=== PATIENT | male | born 1960 | race Two or more races ===

== ENCOUNTER 2024-07-24 15:53 | Emergency (ER) | payer OTHER ==
[~2024-07-24] VITALS: Ht 180.3 cm; Wt 115.7 kg
[2024-07-24 16:17] VITALS: BP 145/81; PULSE 92
--- NOTE | 2024-07-24 16:21 | ED.PDOC ---
GI ASSESSMENT HPI Comments 64y extremely morbidly obese M who presents to the ED for chief complaint of abdominal pain that has been developing over the past few days. Pt states he has a inguinal hernia on the R and states he has been having intermittent RLQ pain which he states was exacerbated at 12 PM today and he came to the ED for further evaluation. Pt states the pain is 5/10, with no associated exacerbating or relieving factors. Pt otherwise denies nausea,vomiting, diarrhea, fever, cough, chills, chest pain or shortness of breath. Pt otherwise denies any strain or exacerbated movements to elicit the pain. Pt states he has had hernia for same time now but states he has not yet gotten surgery for it. Pt otherwise denies any other symptoms at this time. Chief Complaint: Abdominal Pain Time Seen by MD: 16:19 Reviewed Notes: Nurses Notes Allergies: Coded Allergies: NO KNOWN ALLERGIES (Unverified , 07/24/24) Information Source: Patient Mode of Arrival: Ambulatory Brought in by: self Timing: Days Duration: Since onset Prehospital treatment: None Quality: Cramping, Sharp Vomitus: None Severity: Moderate Recent: None Recent Hx of: Other (Right-sided inguinal hernia) Pain Location: RLQ Associated sign and symptoms: Abdominal Pain Past Medical History PAST MEDICAL HISTORY: Denies Past Medical History (Other): Right-sided inguinal hernia Surgical History: Denies all surgeries Family History Family History: Unknown Social History Smoker: Non-Smoker Alcohol: Denies ETOH Use Drugs: Denies Drug Use Lives In: Home Constitutional: denies: chills, diaphoresis, fatigue, fever, malaise, sweats, weakness, others EENTM: denies: blurred vision, double vision, ear bleeding, ear discharge, ear drainage, ear pain, ear ringing, eye pain, eye redness, hearing loss, mouth pain, mouth swelling, nasal discharge, nose bleeding, nose congestion, nose pain, photophobia, tearing, throat pain, throat swelling, voice changes, others Respiratory: denies: cough, hemoptysis, orthopnea, SOB at rest, shortness of breath, SOB with excertion, stridor, wheezing, others Cardiovascular: denies: chest pain, dizzy spells, diaphoresis, Dyspnea on exertion, edema, irregular heart beat, left arm pain, lightheadedness, palpitations, PND, syncope, others Gastrointestinal: reports: abdominal pain; denies: abdomen distended, blood streaked bowels, constipated, diarrhea, dysphagia, difficulty swallowing, hematemesis, melena, nausea, poor appetite, poor fluid intake, rectal bleeding, rectal pain, vomiting, others Genitourinary: denies: burning, dysuria, flank pain, frequency, hematuria, incontinence, penile discharge, penile sore, pain, testicle pain, testicle swelling, urgency, others Neurological: denies: dizziness, fainting, headache, left sided numbness, left sided weakness, numbness, paresthesia, pre-existing deficit, right sided numbness, right sided weakness, seizure, speech problems, tingling, tremors, weakness, others Musculoskeletal: denies: back pain, gout, joint pain, joint swelling, muscle pain, muscle stiffness, neck pain, others Integumetry: denies: bruises, change in color, change in hair/nails, dryness, laceration, lesions, lumps, rash, wounds, others Allergic/Immunocompromised: denies: Difficulty Healing, Frequent Infections, Hives, Itching, others Hematologic/Lymphatic: denies: anemia, blood clots, easy bleeding, easy bruising, swollen glands, others Endocrine: denies: excessive hunger, excessive sweating, excessive thirst, excessive urination, flushing, intolerance to cold, intolerance to heat, unexplained weight gain, unexplained weight loss, others Psychiatric: denies: anxiety, bipolar disorder, depression, hopeless, panic disorder, schizophrenia, sleepless, suicidal, others All Other Systems: Reviewed and Negative Physical Exam General Appearance: Moderate Distress (Moderate distress due to right-sided abdominal/inguinal hernia tenderness.), Obese HEENT: Normal ENT Inspection, Pharynx Normal, TMs Normal Neck: Full Range of Motion, Non-Tender, Normal, Normal Inspection Respiratory: Chest Non-Tender, Lungs Clear, No Accessory Muscle Use, No Respiratory Distress, Normal Breath Sounds Cardiovascular: No Edema, No JVD, No Murmur, No Gallop, Normal Peripheral Pulses, Regular Rate/Rhythm Breast Exam: Deferred Gastrointestinal: Other (Right lower quadrant tenderness to palpation extending towards the inguinal region. Difficult to assess due to body habitus. There was able to appreciate a non reducible mass. No edema or ecchymosis.) Genitalia: Deferred Pelvic: Deferred Rectal: Deferred Extremities: No calf tenderness, Normal capillary refill, Normal inspection, Normal range of motion, Non-tender, No pedal edema Neurologic: Alert, No Motor Deficits, Normal Affect, Normal Mood, No Sensory Deficits Cerebellar Function: Normal Reflexes: Normal Skin: Dry, Normal Color, Warm Lymphatic: No Adenopathy Was a procedure done? Was a procedure done?: No GI differential Dx Differential Diagnosis: Hernia, Trauma intraabdominal, Other (Incarcerated hernia strangulated hernia, sepsis, electrolyte abnormality, UTI) X-Ray, Labs, Meds, VS Vital Signs Date Time Temp Pulse Resp B/P (MAP) Pulse Ox O2 Delivery O2 Flow Rate FiO2 07/24/24 16:27 16 98 Room Air* 0 21 07/24/24 16:17 98.3 92 16 145/81 (102) 98 Lab Test 07/24/24 16:21 07/24/24 16:14 Range/Units White Blood Count 9.3 4.4-10.8 10^3/uL Red Blood Count 6.19 H 4.5-5.90 10^6/uL Hemoglobin 16.7 13.5-17.5 g/dL Hematocrit 50.2 41.0-53.0 % Mean Corpuscular Volume 81.1 80.0-100.0 fL Mean Corpuscular Hemoglobin 26.9 L 28.0-32.0 pg Mean Corpuscular Hemoglobin Concent 33.2 32.0-36.0 g/dL Red Cell Distribution Width 15.8 H 11.8-14.3 % Platelet Count 260 140-450 10^3/uL Mean Platelet Volume 7.5 6.9-10.8 fL Neutrophils (%) (Auto) 84.3 H 37.0-80.0 % Lymphocytes (%) (Auto) 10.8 10.0-50.0 % Monocytes (%) (Auto) 3.9 0.0-12.0 % Eosinophils (%) (Auto) 0.4 0.0-7.0 % Basophils (%) (Auto) 0.6 0.0-2.0 % Neutrophils # (Auto) 7.8 1.6-8.6 10 ^3/uL Lymphocytes # (Auto) 1.0 0.4-5.4 10 ^3/uL Monocytes # (Auto) 0.4 0-1.3 10 ^3/uL Eosinophils # (Auto) 0 0-0.8 10 ^3/uL Basophils # (Auto) 0.1 0-0.2 10 ^3/uL Nucleated Red Blood Cells 0.0 % Sodium Level 142 136-145 mmol/L Potassium Level 5.4 H 3.5-5.1 mmol/L Chloride Level 107 98-107 mmol/L Carbon Dioxide Level 28 20-31 mmol/L Anion Gap 7 5-15 Blood Urea Nitrogen 18 9-23 mg/dL Creatinine 1.03 0.700-1.30 mg/dL Glomerular Filtration Rate Calc 80 >90 mL/min BUN/Creatinine Ratio 17.5 10.0-20.0 Serum Glucose 156 H 74-106 mg/dL Calcium Level 10.8 H 8.7-10.4 mg/dL Total Bilirubin 0.3 0.2-1.0 mg/dL Aspartate Amino Transferase (AST) 22 13-40 U/L Alanine Aminotransferase (ALT) 46 H 7-40 U/L Alkaline Phosphatase 67 46-116 U/L Total Protein 7.8 5.7-8.2 g/dL Albumin 4.7 3.2-4.8 g/dL Urine Color Yellow Yellow Urine Clarity Clear Clear Urine pH 5.5 5.0-9.0 Urine Specific [place] 1.034 1.001-1.035 Urine Protein Trace H Negative Urine Ketones Negative Negative Urine Blood Negative Negative /uL Urine Nitrite Negative Negative Urine Bilirubin Negative Negative Urine Urobilinogen Normal Negative mg/dL Urine Leukocyte Esterase Negative Negative /uL Urine RBC 151 0 - 3 /hpf Urine WBC 297 0 - 3 /hpf Urine Squamous Epithelial Cells Few <5 /hpf Urine Bacteria Few H None Seen /hpf Urine Mucus Few None Seen Urine Glucose Normal Normal mg/dL [place] [id number] Ph: [phone] DIAGNOSTIC IMAGING Diagnostic Imaging Report : [id number] Signed PATIENT: YARIEL SHETH ACCT: [id number] UNIT: [id number] : 1960 LOC: ER ROOM / BED: / AGE / SEX: 64 / M ADM STATUS: REG ER SERVICE [id number] ORDERING PHYSICIAN: DEYSI GARCÍA PAC PROCEDURE(s): ABPLIV - CT AB PEL WITH IV CON ONLY REASON: Right lower quadrant abdominal pain ORDER NUMBER(s): [id number], ACCESSION NUMBER(s): [id number] Exam: CT CT AB PEL WITH IV CON ONLY History: Right lower quadrant abdominal pain Comparison Study: None available at time of dictation. Contrast: Type of contrast: Patient's IV infiltrated during scanning Contrast injected: Contrast wasted: 0 TECHNIQUE: A digital senior writer image was obtained. During the uneventful, intravenous administration of contrast material, multislice data acquisition was obtained through the abdomen and pelvis. The data set was subsequently reconstructed into axial images. Images were reviewed on a work station using a combination of axial and multiplanar using a variety of window levels and settings. Radiation Dose Information: CT Dose: CTDI volume is 22.97 mGy. Dose-length product is 1471.88 mGy*cm FINDINGS: Lung Bases: No acute or significant lung base finding. Normal heart size. No pleural or pericardial effusion. Liver: The liver is normal in size. No focal lesions. Normal hepatic vascular enhancement. Gallbladder and Biliary Tree: Unremarkable Spleen: Unremarkable Pancreas: The pancreas is normal in appearance without focal lesions or abnormal enhancement. Adrenal Glands: Unremarkable Kidneys: Kidneys demonstrate normal symmetric enhancement without focal lesions, calculi or hydronephrosis. Bladder: Unremarkable Bowel: The stomach is grossly normal in appearance. Small bowel and colon are normal in caliber and distribution. The appendix is not visualized; however, no secondary findings of acute appendicitis identified. Ascites: Absent Lymphadenopathy: No mesenteric, retroperitoneal or periportal lymphadenopathy. Abdominal Wall and Mesentery: 5.4 x 5.7 x 4.3 cm right inguinal hernia containing mesenteric fat and bowel which is fluid-filled. Vasculature: The visualized abdominal aorta is normal in size and caliber. Abdominal and pelvic vessels demonstrate normal enhancement. Pelvic Organs: Unremarkable Musculoskeletal: No aggressive focal bony lesions, acute fractures or dislocation. Soft tissues: Unremarkable. IMPRESSION: 1. 5.7 x 5.4 x 4.3 cm right inguinal hernia containing fluid-filled bowel and mesenteric fat. Can not exclude incarceration. 2. No findings bowel obstruction 3. No calcified gallstones in the gallbladder. 4. No nephrolithiasis or hydronephrosis. All CT scans at this medical facility are performed using dose modulation techniques as appropriate to a performed exam including the following: Automated exposure control was utilized; adjustment of the MA and/or KV according to patient size; and use of iterative reconstruction technique. ATED BY: DEMARIO MUÑOZ Jr., DO DICTATED DATE/TIME: 07/24/241811 SIGNED BY: DEMARIO MUÑOZ Jr., SIGNED DATE/TIME: 07/24/241811 CC: X-Ray, Labs, Meds, VS Comment All studies performed the ED were reviewed by me personally. Serum laboratories were unremarkable for any definitive systemic process, but urine returned a large urinary tract infection. Imaging studies showed a bowel and mesenteric filled right-sided inguinal hernia that could not be ruled out for incarceration and therefore, patient will be admitted for IV antibiotics to address his urinary tract infection as well as surgical evaluation to assess his hernia concerns. Time of 1ST Reevaluation: 19:50 Reevaluation 1ST: Improved Consultation: PCP Patient Education/Counseling: Diagnosis, Treatment Family Education/Counseling: Diagnosis, Treatment, No Family Present Additional Information - I reviewed the following notes from patient's past medical encounters: - The following tests were ordered, and results were reviewed by me: (Labs, X- Ray, EKG): CBC, CMP, CT abdomen and pelvis w/o contrast, UA, - Additional information was gathered from interviewing the following independent Historian: (Family, Other Providers, EMT): none - I reviewed and agreed with the following test results read by other provider: (X-ray, CT, US): radiologist - I discussed treatments and results with medical personnel and: (consultants, family): none Departure 1 Departure Time of Disposition: 19:51 Impression: Primary Impression: Incarcerated hernia Additional Impression: UTI (urinary tract infection) Disposition: ADMITTED INPATIENT Condition: Stable Discharged With: Self Critical Care Note Critical Care Time?: No Stability Stability form required: No Heart Score Heart Score: Heart Score Response (Comments) Value History N/A 0 EKG N/A 0 Age N/A 0 Risk Factors N/A 0 Troponin N/A 0 Total 0 I personally scribed for DEYSI GARCÍA PAC ([email or web address]) on 07/24/24 at 16:21. Electronically submitted by Mayda Wilson ([email or web address]). I personally scribed for DEYSI GARCÍA PAC ([employer]) on 07/24/24 at 18:20. Electronically submitted by Mayda Wilson ([email or web address]). DEYSI GARCÍA [facility] Jul 24, 2024 16:21
[2024-07-24 16:27] VITALS: RESP 16; O2SAT 98
[2024-07-24 16:40] LABS: Basophils # (auto) 0.1 10 ^3/uL (0-0.2); Basophils % (auto) 0.6 % (0.0-2.0); Eosinophils # (auto) 0 10 ^3/uL (0-0.8); Monocytes # (auto) 0.4 10 ^3/uL (0-1.3); Monocytes % (auto) 3.9 % (0.0-12.0); Neutrophils # (auto) 7.8 10 ^3/uL (1.6-8.6); Neutrophils % (auto) 84.3 % (37.0-80.0); White Blood Cell 9.3 10^3/uL (4.4-10.8)
[2024-07-24 16:42] LABS: Eosinophils % (auto) 0.4 % (0.0-7.0); Hematocrit 50.2 % (41.0-53.0); Hemoglobin 16.7 g/dL (13.5-17.5); Lymphocytes % (auto) 10.8 % (10.0-50.0); Mean Corpuscular Hemoglobin 26.9 pg (28.0-32.0); Mean Corpuscular Hgb Conc. 33.2 g/dL (32.0-36.0); Mean Corpuscular Volume 81.1 fL (80.0-100.0); Platelet Count (auto) 260 10^3/uL (140-450); Red Blood Cells 6.19 10^6/uL (4.5-5.90); Red Cell Distribution Width 15.8 % (11.8-14.3)
[2024-07-24 16:47] LABS: Albumin 4.7 g/dL (3.2-4.8); Alkaline Phosphatase 67 U/L (46-116); Aspartate Aminotransferase 22 U/L (13-40); BUN/Creatinine Ratio 17.5 (10.0-20.0); Blood Urea Nitrogen 18 mg/dL (9-23); Chloride 107 mmol/L (98-107); Sodium 142 mmol/L (136-145); Total Protein 7.8 g/dL (5.7-8.2)
[2024-07-24 16:54] LABS: Alanine Aminotransferase 46 U/L (7-40); Bilirubin, Total 0.3 mg/dL (0.2-1.0); Calcium 10.8 mg/dL (8.7-10.4); Glucose 156 mg/dL (74-106); Potassium 5.4 mmol/L (3.5-5.1)
[2024-07-24] MEDS: ACETAMINOPHEN 325 MG TAB PO ONE (16:55)
[2024-07-24] MEDS ORDERED: IBUPROFEN 800 MG TAB PO ONE (17:00)
[2024-07-24 17:25] LABS: Anion Gap 7 (5-15); Carbon Dioxide 28 mmol/L (20-31)
[2024-07-24] MEDS: IOHEXOL 300 MG/ML 100ML BOTTLE IJ ONE (17:34)
--- NOTE | 2024-07-24 18:14 | DVH ---
Exam: CT CT AB PEL WITH IV CON ONLY History: Right lower quadrant abdominal pain Comparison Study: None available at time of dictation. Contrast: Type of contrast: Patient's IV infiltrated during scanning Contrast injected: Contrast wasted: 0 TECHNIQUE: A digital flake cutter operator image was obtained. During the uneventful, intravenous administration of c ontrast material, multislice data acquisition was obtained through the abdomen and pelvis. The data s et was subsequently reconstructed into axial images. Images were reviewed on a work station using a c ombination of axial and multiplanar using a variety of window levels and settings. Radiation Dose Information: CT Dose: CTDI volume is 22.97 mGy. Dose-length product is 1471.88 mGy*cm FINDINGS: Lung Bases: No acute or significant lung base finding. Normal heart size. No pleural or pericardial effusion. Liver: The liver is normal in size. No focal lesions. Normal hepatic vascular enhancement. Gallbladder and Biliary Tree: Unremarkable Spleen: Unremarkable Pancreas: The pancreas is normal in appearance without focal lesions or abnormal enhancement. Adrenal Glands: Unremarkable Kidneys: Kidneys demonstrate normal symmetric enhancement without focal lesions, calculi or hydroneph rosis. Bladder: Unremarkable Bowel: The stomach is grossly normal in appearance. Small bowel and colon are normal in caliber and d istribution. The appendix is not visualized; however, no secondary findings of acute appendicitis id entified. Ascites: Absent Lymphadenopathy: No mesenteric, retroperitoneal or periportal lymphadenopathy. Abdominal Wall and Mesentery: 5.4 x 5.7 x 4.3 cm right inguinal hernia containing mesenteric fat and bowel which is fluid-filled. Vasculature: The visualized abdominal aorta is normal in size and caliber. Abdominal and pelvic vess els demonstrate normal enhancement. Pelvic Organs: Unremarkable Musculoskeletal: No aggressive focal bony lesions, acute fractures or dislocation. Soft tissues: Unremarkable. IMPRESSION: 1. 5.7 x 5.4 x 4.3 cm right inguinal hernia containing fluid-filled bowel and mesenteric fat. Can not exclude incarceration. 2. No findings bowel obstruction 3. No calcified gallstones in the gallbladder. 4. No nephrolithiasis or hydronephrosis. All CT scans at this medical facility are performed using dose modulation techniques as appropriate t o a performed exam including the following: Automated exposure control was utilized; adjustment of th e MA and/or KV according to patient size; and use of iterative reconstruction technique.
[2024-07-24 19:00] LABS: Urine Bacteria FEW /hpf (None Seen); Urine Blood Negative /uL (Negative); Urine Clarity Clear (Clear); Urine Color Yellow (Yellow); Urine Mucus FEW (None Seen); Urine Protein, UAD TRACE (Negative); Urine Specific Gravity 1.034 (1.001-1.035); Urine Urobilinogen Normal (Negative); Urine WBC 297 /hpf (0 - 3); Urine pH 5.5 (5.0-9.0)
[2024-07-24] MEDS ORDERED: levoFLOXacin 750MG 150 ML IV ONE (20:00)
== END 2024-07-24 21:30 | disposition left against medical advice (07) ==
LOC: ER 15:53
DX: K46.0 Unspecified abdominal hernia with obstruction, without gangrene (principal); N39.0 Urinary tract infection, site not specified; E66.01 Morbid (severe) obesity due to excess calories; Z68.35 Body mass index [BMI] 35.0-35.9, adult
CPT/HCPCS: 36415; 74177; 80053; 81001; 85025; 99285; Q9967